=== PATIENT | female | born 1975 | race Caucasian/White ===

== ENCOUNTER → 2020-02-08 08:44 | Outpatient (CLI) | payer OTHER, SELFPAY ==
[2020-02-08 09:56] LABS: Hematocrit 41.1 % (36-46); Hemoglobin 13.7 g/dL (12.0-16.0); Mean Corpuscular HGB Conc 33.4 % (30-36); Mean Corpuscular Hemoglobin 30.7 PG (26-34); Mean Corpuscular Volume 91.9 fL (80-100); Platelet Count 280 X10^3/uL (150-400); Red Blood Cell Count 4.47 X10^6/uL (4.0-5.2); Red Cell Distribution Width 13.4 % (11.6-14.8)
[2020-02-08 10:32] LABS: Alanine Aminotransferase 13 IU/L (<35); Albumin 4.2 g/dL (3.5-5.0); Albumin Globulin Ratio 1.3 (1.0-2.8); Alkaline Phosphatase 59 U/L (38-126); Aspartate Aminotransferase 21 IU/L (14-36); BUN Creatinine Ratio 31.1 (6-22); Bilirubin Total 0.5 mg/dL (0.2-1.3); Blood Urea Nitrogen 19 mg/dL (7-17); Calcium 9.1 mg/dL (8.4-10.2); Carbon Dioxide 27 mmol/L (22-32); Chloride 105 mmol/L (98-107); Cholesterol 205 mg/dL (140-199); Estimated Glomerular Filt Rate > 60.0 mL/min (>60); Globulin 3.3 g/dL (1.7-4.1); Glucose 93 mg/dL (70-100); HDL Cholesterol 77 mg/dL (40-60); HEMOLYSIS < 15 (0-50); LDL Cholesterol Calculated 111 mg/dL (<100); Potassium 4.3 mmol/L (3.4-5.1); Sodium 138 mmol/L (137-145); Total Protein 7.5 g/dL (6.3-8.2); Triglycerides 87 mg/dL (35-150)
[2020-02-08 10:59] LABS: TSH w/ Reflex to FT4 1.56 uIU/mL (0.47-4.68)
== END ==
PROVIDERS: Family Provider Physician Assistant; PCP Registered Nurse Diabetes Educator; Referring Provider Registered Nurse Diabetes Educator; Visit Provider Registered Nurse Diabetes Educator
DX: Z00.00 Encounter for general adult medical examination without abnormal findings (principal)
CPT/HCPCS: 36415; 80053; 80061; 84443; 85027

== ENCOUNTER → 2020-02-18 11:04 | Outpatient (CLI) | payer OTHER, SELFPAY ==
--- NOTE | 2020-02-18 11:07 | DI.US.S_ITS ---
PROCEDURE: US PELVIC COMPLETE INDICATIONS: Apparent enlarged irregularly shaped uterus on exam TECHNIQUE: Real-time scanning was performed of the pelvic organs, with image documentation. COMPARISON: [facility], CR, [id number] W PEL IF PERFORMED, 01/03/2017, 8:52. FINDINGS: Transabdominal scanning: Limited scanning through the kidneys shows no hydronephrosis. Right kidney measures 12.5 cm. Left kidney measures 11.6 cm. No pathologic free abdominal or pelvic fluid. Endovaginal scanning: Uterus: Uterus is normal in size at 12.9 x 10.3 x 6.5 cm. Uterus is imaged at the level of the umbilicus. Large left anterior intramural fibroid measuring 7 x 6 x 5.7 cm. Multiple fibroids. The endometrium measures approximately 4 mm in combined thickness. Ovaries: Blood flow seen in both ovaries. Less than 12 ovarian follicles bilaterally. Right ovary measures 2.4 x 2.1 x 1.4 cm. Left ovary measures 4.9 x 2.8 x 2.7 cm. Left ovary complex cyst measuring at 2.9 x 2.5 x 2.5 cm. This has a lacy or septated appearance. No internal vascularity is seen. IMPRESSION: 1. Large bulky fibroid uterus. Larger fibroid measuring 7 cm. 2. Endometrium measures approximately 4 mm. 3. Complex left ovarian cyst measuring 2.9 cm. -Recommend follow-up ultrasound in 6-12 weeks. Transvaginal evaluation would likely be helpful for further characterization at that time. Dictated by: Justyn Todd M.D. on 02/18/2020 at 13:52 Approved by: Justyn Todd M.D. on 02/18/2020 at 14:13
== END ==
PROVIDERS: PCP Registered Nurse Diabetes Educator; Referring Provider Registered Nurse Diabetes Educator; Visit Provider Registered Nurse Diabetes Educator
DX: D25.1 Intramural leiomyoma of uterus (principal); N83.292 Other ovarian cyst, left side; N85.2 Hypertrophy of uterus
CPT/HCPCS: 76856

== ENCOUNTER → 2020-03-19 11:00 | Outpatient (CLI) | payer OTHER, SELFPAY ==
--- NOTE | 2020-03-19 | DI.MG.S_ITS ---
BILATERAL DIGITAL SCREENING MAMMOGRAM 3D/2D WITH CAD: 03/19/2020 CLINICAL: Routine screening. Comparison is made to exam dated: 12/21/2016 [facility]. There are scattered fibroglandular elements in both breasts. Current study was also evaluated with a Computer Aided Detection (CAD) system. No significant masses, calcifications, or other findings are seen in either breast. There has been no significant interval change. IMPRESSION: NEGATIVE There is no mammographic evidence of malignancy. A 1 year screening mammogram is recommended. This exam was interpreted at Station ID: [id number]. NOTE: For mammograms, a report in lay terms will be sent to the patient. Approximately 15% of breast malignancies will not be visualized mammographically. In the management of a palpable breast mass, a negative mammogram must not discourage biopsy of a clinically suspicious lesion. Electronically Signed By: Jermaine noble/chato:03/19/2020 12:29:07 letter sent: Normal Exam ACR BI-RADS Category 1: Negative [id number]
== END ==
PROVIDERS: PCP Registered Nurse Diabetes Educator; Referring Provider Registered Nurse Diabetes Educator; Visit Provider Registered Nurse Diabetes Educator
DX: Z12.31 Encounter for screening mammogram for malignant neoplasm of breast (principal)
CPT/HCPCS: 77063; 77067

== ENCOUNTER → 2020-03-28 10:30 | Outpatient (CLI) | payer OTHER, SELFPAY ==
--- NOTE | 2020-03-28 10:32 | DI.US.S_ITS ---
PROCEDURE: US PELVIC COMPLETE INDICATIONS: 6 WEEK FOLLOW-UP TECHNIQUE: Real-time scanning was performed of the pelvic organs, with image documentation. Additional endovaginal scanning was necessary due to incomplete visualization of the adnexal and endometrial structures by transabdominal scanning. COMPARISON: [facility], , US PELVIC COMPLETE, 02/18/2020, 11:43. FINDINGS: Transabdominal scanning: Limited scanning through the kidneys shows no hydronephrosis. No pathologic free abdominal or pelvic fluid. The endometrial lining could not be effectively visualized due to overlying uterine fibroids, producing shadowing and distortion of the more posterior uterus. There is a right-sided anterior intramural 6.9 x 4.2 x 5.8 cm fibroid also left-sided anterior intramural 7.2 x 5.7 x 6.1 cm fibroid. Endovaginal scanning: Uterus: Uterus is normal in size at 10.1 x 11.0 x 11.3 cm. The endometrium Ovaries: The left ovary, containing a complex structure previously, now appears normal with resolution of a complex presumed hemorrhagic ovarian cyst on the left. The right ovary could not be seen due to bowel gas. IMPRESSION: At least 2 large uterine fibroids are present anteriorly which obscure visualization of the endometrial lining in the more posterior uterus. Resolution of a complex left ovarian structure that, given foreign exchange clerk time, appears to have represented a hemorrhagic left ovarian cyst that has involuted. No follow-up recommended. Dictated by: Sunil Frias M.D. on 03/28/2020 at 11:56 Approved by: Sunil Frias M.D. on 03/28/2020 at 12:00
== END ==
PROVIDERS: PCP Registered Nurse Diabetes Educator; Referring Provider Registered Nurse Diabetes Educator; Visit Provider Registered Nurse Diabetes Educator
DX: N83.292 Other ovarian cyst, left side (principal); D25.1 Intramural leiomyoma of uterus
CPT/HCPCS: 76830; 76856

== ENCOUNTER → 2020-06-27 09:43 | Outpatient (CLI) | payer OTHER, SELFPAY ==
[2020-06-27] MEDS: COVID-19 VACC #1, MRNA(MOD) 100 MCG/0.5 ML VIAL IM (09:51)
== END ==
PROVIDERS: PCP Registered Nurse Diabetes Educator; Visit Provider Internal Medicine
DX: Z23 Encounter for immunization (principal)
CPT/HCPCS: 0011A; 91301

== ENCOUNTER → 2020-07-25 09:38 | Outpatient (CLI) | payer OTHER, SELFPAY ==
[2020-07-25] MEDS: COVID-19 VACC #2, MRNA(MOD) 100 MCG/0.5 ML VIAL IM (09:39)
== END ==
PROVIDERS: PCP Registered Nurse Diabetes Educator; Visit Provider Internal Medicine
DX: Z23 Encounter for immunization (principal)
CPT/HCPCS: 0012A; 91301

== ENCOUNTER 2021-04-17 10:24 | Emergency (ER) | payer OTHER, SELFPAY ==
[2021-04-17] VITALS (13 sets, daily range): BP systolic 113–167; BP diastolic 67–101; PULSE 74–110; RESP 15–24; TEMP 36.1; O2SAT 95–98; BMI 29.2
[2021-04-17 10:47] LABS: Add Manual Diff / Slide Review NO; Basophils Absolute Auto 100 /uL (0-100); Basophils Percent Auto 0.7 % (0-2); Eosinophils Absolute Auto 0 /uL (0-450); Hematocrit 44.4 % (36-46); Lymphocytes Absolute Auto 2600 /uL (1100-4500); Lymphocytes Percent Auto 18.5 % (25-40); Mean Corpuscular HGB Conc 33.9 % (30-36); Mean Corpuscular Hemoglobin 29.8 PG (26-34); Mean Corpuscular Volume 87.9 fL (80-100); Monocytes Absolute Auto 600 /uL (0-900); Monocytes Percent Auto 4.5 % (3-14); Neutrophils Absolute Auto 10900 /uL (1500-7000); Neutrophils Percent Auto 76.3 % (50-75); Platelet Count 326 X10^3/uL (150-400); Red Blood Cell Count 5.05 X10^6/uL (4.0-5.2); Red Cell Distribution Width 14.1 % (11.6-14.8); White Blood Cell Count 14.2 X10^3/uL (4.5-11.0)
--- NOTE | 2021-04-17 10:55 | PC.NURSE ---
Poison control called talked to Sivakumar Labs ordered are appropriate,wants serum osmalarity added on. If ethanol is negative and labs look good this is low risk situation.
[2021-04-17 11:00] LABS: COVID19 -Nasal RAPID Negative (Negative)
[2021-04-17] MEDS: ONDANSETRON 4 MG/2 ML INJ IV (11:00)
--- NOTE | 2021-04-17 11:00 | ED_ITS ---
HPI - Alcohol General Chief Complaint: Toxicology Problem Stated Complaint: Used alcohol for 7 straight days Time Seen by Provider: 04/17/21 10:44 Source: patient Mode of arrival: Ambulatory Limitations: no limitations History of Present Illness HPI narrative: The patient has a history of alcohol abuse. She has been in therapy in the past, there into rehab. She has been binge drinking for 7 days. She has been consuming large amounts of rum and vodka, about 1/2 bottle daily. She around of alcohol home. She consumes a small amount of isopropyl alcohol last night, about 5:00 a.m. this morning she consumed a quarter bottle of the isopropyl alcohol. She has headache. She has no visual changes. She has no chest pain, palpitations, or dyspnea. She has nausea, she has not vomited this morning. She did vomit yesterday. She has no GI plan. She has no history of seizures. She has no shaking or tremor at this time. She is crying, she is quite upset. She has no history of GI bleeding, no history of liver disease. She takes Lexapro for depression. 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 She has a pleasant, very devoted with her. Related Data Previous Rx's Medication Instructions Recorded hydroxyzine HCl 25 mg tablet 25 mg PO QID PRN #20 tab 09/16/20 escitalopram oxalate 10 mg tablet 15 mg PO DAILY #135 tab 11/19/20 (Lexapro) Allergies Allergy/AdvReac Type Severity Reaction Status Date / Time No Known Drug Allergies Allergy Verified 04/17/21 10:39 Review of Systems Constitutional Constitutional: Denies body ache(s), Denies chills, Denies fatigue, Denies fever(s) and Denies night sweats Eyes Eyes: Denies change in vision ENT Ears, Nose, Mouth, and Throat: Denies vertigo, Denies dizziness, Denies sinus pressure and Denies sore throat Cardiovascular Cardiovascular: Denies chest pain, Denies syncope, Denies rapid heart rate and Denies dyspnea Respiratory Respiratory: Denies chest congestion, Denies cough and Denies dyspnea Gastrointestinal Gastrointestinal: Denies abdominal pain, Denies melena, Denies constipation, Reports nausea and Reports vomiting (History, not today) Genitourinary Genitourinary: Denies dysuria Musculoskeletal Musculoskeletal: Denies arthralgias and Denies back pain Integumentary/Breasts Skin/Breast: Denies rash Neurologic Neurologic: Denies confusion, Denies vertigo, Denies dizziness and Denies syncope Psychiatric Psychiatric: Denies confusion and Reports depression Comments: No suicidal ideation. Endocrine Endocrine: Denies fatigue and Denies flushing Hematologic/Lymphatic On Anticoagulants: No Patient History Medical History (Updated 04/17/21 @ 14:53 by Patel Deluna MD) Alcohol abuse Anemia (Unknown) Anxiety (~2014) Chicken pox (~1979) Depression (~2014) Elevated LDL cholesterol level Fibroids (~2002) Pain of right hip joint pain (12/2016) Rosacea Vitamin D deficiency (12/2016) Family History Father Cancer Mother Hypertension Brother Mental health problem Social History Smoking Status: Never smoker Tobacco: How many years used: 5 additional social history: 01/24/20: Patient lives here in [place] with her , 17-year-old daughter, 31-year-old stepson, and her 's brother who is paralyzed and for whom she and her are caretakers. 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 which are also sold through their company. 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 Smoking Status: Never smoker alcohol intake frequency: 3 or more drinks per day Alcohol type: hard liquor Substance Use Type: does not use Exam Initial Vital Signs Initial Vital Signs: Vital Signs Temperature 97.0 F L 04/17/21 10:35 Pulse Rate 99 H 04/17/21 10:35 Respiratory Rate 15 04/17/21 10:35 Blood Pressure 167/101 H 04/17/21 10:35 Pulse Oximetry 97 04/17/21 10:35 Const General: cooperative, in distress, anxious and other (Crying) HENMT Head: normocephalic and atraumatic Face and sinus: normal facial exam Mouth: oral mucosae normal Eyes Conjunctivae: conjunctivae normal Sclera: sclerae normal Pupils: PERRL EOM: EOM intact bilaterally Neck Neck: normal visual inspection, No lymphadenopathy and No JVD Resp Effort & Inspection: normal respiratory effort Auscultation: clear to auscultation bilaterally Cardio Rate: regular rate Rhythm: regular rhythm Heart Sounds: S1 normal, S2 normal and no murmurs GI Inspection: normal to inspection and non-distended Palpation: soft and No tender Auscultation: normal bowel sounds Back/Spine/Pelvis Back: normal to inspection Skin General: no rashes or lesions noted Neuro General: patient alert, patient awake, patient oriented x3, no focal motor deficits and other (No tremor) Extrem General: no pedal edema and no calf tenderness Psych Appearance: disheveled Mood: anxious mood Attitude: cooperative Course Course Course Narrative: The patient has been monitored in the ER for 4 hours. Labs and EKG monitoring has been normal. She is clinically stable. She has been visited by Social Work, who confirms she is not suicidal. She has a minimal making a plan to protect her health. [place] Poison Control was consulted. They have no additional concerns. Orders Ordered: ED Orders 04/17/21 10:36 Acetaminophen Stat COVID19 -Nasal swab/Pre-Proc Stat Complete Blood Count AUTO DIFF Stat Comprehensive Metabolic Panel Stat Ethanol (ETOH) Stat Free T4, Direct Thyroxine Stat Salicylate Stat Thyroid Stimulating Hormone Stat 04/17/21 10:40 Urine Culture Stat Urine Drug Screen, Rapid Stat Urine Microscopic Stat 04/17/21 10:45 Ketones (Beta-Hydroxybutyrate) Stat 04/17/21 10:48 EKG-12 Lead Stat 04/17/21 11:05 Osmolality, Serum Stat 04/17/21 11:14 ABG [Arterial Blood Gas] Stat 04/17/21 12:14 Consult to [facility] - Trouble Locater Stat Sodium Chloride (Normal Saline 0.9%) 1,000 mls @ 250 mls/hr IV CONT AUBREY Last Admin: 04/17/21 13:08 Dose: 250 mls/hr Documented by: ATAYLOR Discontinued Medications Sodium Chloride (Normal Saline 0.9%) 1,000 mls @ 1,000 mls/hr IV BOLUS ONE Stop: 04/17/21 13:24 Last Infusion: 04/17/21 12:10 Dose: 999 mls/hr Documented by: Admin: 04/17/21 11:05 Dose: 1,000 mls/hr Documented by: ADAM Ondansetron HCl (Ondansetron 4 Mg/2 Ml Inj) 4 mg IV NOW ONE Stop: 04/17/21 10:56 Last Admin: 04/17/21 11:00 Dose: 4 mg Documented by: ADAM Sodium Chloride (Sodium Chloride 0.9% 100 Ml) 250 ml IV NOW ONE Stop: 04/17/21 12:26 Last Admin: 04/17/21 12:30 Dose: Not Given Documented by: ADAM Vital Signs Vital signs: Vital Signs - 8 hr 04/17/21 10:35 04/17/21 10:44 04/17/21 10:45 Temperature 97.0 F L Pulse Rate 99 H 92 H 91 H Respiratory Rate 15 Blood Pressure 167/101 H 144/79 H Pulse Oximetry 97 97 98 04/17/21 11:00 04/17/21 11:01 04/17/21 11:31 Temperature Pulse Rate 86 89 74 Respiratory Rate 24 Blood Pressure 117/79 141/80 H Pulse Oximetry 98 98 97 04/17/21 12:00 04/17/21 12:30 04/17/21 13:00 Temperature Pulse Rate 88 98 H 110 H Respiratory Rate 18 18 23 Blood Pressure 130/79 113/67 Pulse Oximetry 98 96 98 04/17/21 13:04 04/17/21 13:30 04/17/21 14:00 Temperature Pulse Rate 101 H 107 H 91 H Respiratory Rate 16 21 Blood Pressure 125/71 131/70 Pulse Oximetry 98 97 MDM - Alcohol Lab Data Result diagrams: 04/17/21 10:36 04/17/21 10:36 Labs: Lab Results 04/17/21 04/17/21 04/17/21 Range/Units 10:36 10:36 10:36 WBC 14.2 H (4.5-11.0) X10^3/uL RBC 5.05 (4.0-5.2) X10^6/uL Hgb 15.0 (12.0-16.0) g/dL Hct 44.4 (36-46) % MCV 87.9 (80-100) fL MCH 29.8 (26-34) PG MCHC 33.9 (30-36) % RDW 14.1 (11.6-14.8) % Plt Count 326 (150-400) X10^3/uL Neut % (Auto) 76.3 H (50-75) % Lymph % (Auto) 18.5 L (25-40) % [place] % (Auto) 4.5 (3-14) % Eos % (Auto) 0.0 L (2-4) % Baso % (Auto) 0.7 (0-2) % Neut # (Auto) 02582 H (9588-4031) /uL Lymph # (Auto) 2600 (1155-3495) /uL [place] # (Auto) 600 (0-900) /uL Eos # (Auto) 0 (0-450) /uL Baso # (Auto) 100 (0-100) /uL ABG pH (7.35-7.45) ABG pCO2 (35-45) mmHg ABG pO2 (80-100) mmHg ABG HCO3 (22-26) mmol/L ABG Total CO2 (21-31) mmol/L ABG O2 Saturation (95-100) % ABG Base Excess (-2-2) mmol/L FiO2 Sodium 142 (137-145) mmol/L Potassium 3.9 (3.4-5.1) mmol/L Chloride 103 (98-107) mmol/L Carbon Dioxide 22 (22-32) mmol/L BUN 9 (7-17) mg/dL Creatinine 0.59 (0.52-1.04) mg/dL Estimated GFR > 60.0 (>60) mL/min BUN/Creatinine Ratio 15.3 (6-22) Glucose 136 H (70-100) mg/dL Calcium 8.9 (8.4-10.2) mg/dL Total Bilirubin 0.8 (0.2-1.3) mg/dL AST 37 H (14-36) IU/L ALT 20 (<35) IU/L Alkaline Phosphatase 80 (38-126) U/L Total Protein 9.6 H (6.3-8.2) g/dL Albumin 5.0 (3.5-5.0) g/dL Globulin 4.6 H (1.7-4.1) g/dL Albumin/Globulin Ratio 1.1 (1.0-2.8) TSH 1.44 (0.47-4.68) uIU/mL Free T4 0.85 (0.78-2.19) ng/dL Urine RBC (0-5/HPF) Urine WBC (0-5/HPF) Ur Squamous Epith Cells (0-5/HPF) Urine Bacteria (None) Ur Culture Indicated? Salicylates < 1.0 (<20) mg/dL U Opiates 300ng/mL cut (Negative) Ur Oxycodone Screen (Negative) Urine Methadone Screen (Negative) Acetaminophen < 10 L (10-30) ug/mL Ur Barbiturates Screen (Negative) U Tricyclic Antidepress (Negative) Ur Phencyclidine Scrn (Negative) Ur Amphetamines Screen (Negative) U Methamphetamines Scrn (Negative) Ur MDMA Scrn (Ecstasy) (Negative) U Benzodiazepines Scrn (Negative) Urine Cocaine Screen (Negative) U Marijuana (THC) Screen (Negative) Ethyl Alcohol 50 H ( - 10) mg/dL Ketones (<0.27) mmol/L SARS-CoV-2 (PCR) (Negative) 04/17/21 04/17/21 04/17/21 Range/Units 10:36 10:40 10:40 WBC (4.5-11.0) X10^3/uL RBC (4.0-5.2) X10^6/uL Hgb (12.0-16.0) g/dL Hct (36-46) % MCV (80-100) fL MCH (26-34) PG MCHC (30-36) % RDW (11.6-14.8) % Plt Count (150-400) X10^3/uL Neut % (Auto) (50-75) % Lymph % (Auto) (25-40) % [place] % (Auto) (3-14) % Eos % (Auto) (2-4) % Baso % (Auto) (0-2) % Neut # (Auto) (8394-1072) /uL Lymph # (Auto) (6238-3993) /uL [place] # (Auto) (0-900) /uL Eos # (Auto) (0-450) /uL Baso # (Auto) (0-100) /uL ABG pH (7.35-7.45) ABG pCO2 (35-45) mmHg ABG pO2 (80-100) mmHg ABG HCO3 (22-26) mmol/L ABG Total CO2 (21-31) mmol/L ABG O2 Saturation (95-100) % ABG Base Excess (-2-2) mmol/L FiO2 Sodium (137-145) mmol/L Potassium (3.4-5.1) mmol/L Chloride (98-107) mmol/L Carbon Dioxide (22-32) mmol/L BUN (7-17) mg/dL Creatinine (0.52-1.04) mg/dL Estimated GFR (>60) mL/min BUN/Creatinine Ratio (6-22) Glucose (70-100) mg/dL Calcium (8.4-10.2) mg/dL Total Bilirubin (0.2-1.3) mg/dL AST (14-36) IU/L ALT (<35) IU/L Alkaline Phosphatase (38-126) U/L Total Protein (6.3-8.2) g/dL Albumin (3.5-5.0) g/dL Globulin (1.7-4.1) g/dL Albumin/Globulin Ratio (1.0-2.8) TSH (0.47-4.68) uIU/mL Free T4 (0.78-2.19) ng/dL Urine RBC 0-1/hpf (0-5/HPF) Urine WBC 0-1/hpf (0-5/HPF) Ur Squamous Epith Cells 1-5 /hpf (0-5/HPF) Urine Bacteria Occasional (0-1) (None) Ur Culture Indicated? Cult not indicated Salicylates (<20) mg/dL U Opiates 300ng/mL cut Negative (Negative) Ur Oxycodone Screen Negative (Negative) Urine Methadone Screen Negative (Negative) Acetaminophen (10-30) ug/mL Ur Barbiturates Screen Negative (Negative) U Tricyclic Antidepress Negative (Negative) Ur Phencyclidine Scrn Negative (Negative) Ur Amphetamines Screen Negative (Negative) U Methamphetamines Scrn Negative (Negative) Ur MDMA Scrn (Ecstasy) Negative (Negative) U Benzodiazepines Scrn Negative (Negative) Urine Cocaine Screen Negative (Negative) U Marijuana (THC) Screen Negative (Negative) Ethyl Alcohol ( - 10) mg/dL Ketones (<0.27) mmol/L SARS-CoV-2 (PCR) Negative (Negative) 04/17/21 04/17/21 Range/Units 10:45 11:14 WBC (4.5-11.0) X10^3/uL RBC (4.0-5.2) X10^6/uL Hgb (12.0-16.0) g/dL Hct (36-46) % MCV (80-100) fL MCH (26-34) PG MCHC (30-36) % RDW (11.6-14.8) % Plt Count (150-400) X10^3/uL Neut % (Auto) (50-75) % Lymph % (Auto) (25-40) % [place] % (Auto) (3-14) % Eos % (Auto) (2-4) % Baso % (Auto) (0-2) % Neut # (Auto) (2447-5544) /uL Lymph # (Auto) (4956-0876) /uL [place] # (Auto) (0-900) /uL Eos # (Auto) (0-450) /uL Baso # (Auto) (0-100) /uL ABG pH 7.42 (7.35-7.45) ABG pCO2 35.7 (35-45) mmHg ABG pO2 76 L (80-100) mmHg ABG HCO3 23 (22-26) mmol/L ABG Total CO2 24 (21-31) mmol/L ABG O2 Saturation 95 (95-100) % ABG Base Excess -1.0 (-2-2) mmol/L FiO2 21 Sodium (137-145) mmol/L Potassium (3.4-5.1) mmol/L Chloride (98-107) mmol/L Carbon Dioxide (22-32) mmol/L BUN (7-17) mg/dL Creatinine (0.52-1.04) mg/dL Estimated GFR (>60) mL/min BUN/Creatinine Ratio (6-22) Glucose (70-100) mg/dL Calcium (8.4-10.2) mg/dL Total Bilirubin (0.2-1.3) mg/dL AST (14-36) IU/L ALT (<35) IU/L Alkaline Phosphatase (38-126) U/L Total Protein (6.3-8.2) g/dL Albumin (3.5-5.0) g/dL Globulin (1.7-4.1) g/dL Albumin/Globulin Ratio (1.0-2.8) TSH (0.47-4.68) uIU/mL Free T4 (0.78-2.19) ng/dL Urine RBC (0-5/HPF) Urine WBC (0-5/HPF) Ur Squamous Epith Cells (0-5/HPF) Urine Bacteria (None) Ur Culture Indicated? Salicylates (<20) mg/dL U Opiates 300ng/mL cut (Negative) Ur Oxycodone Screen (Negative) Urine Methadone Screen (Negative) Acetaminophen (10-30) ug/mL Ur Barbiturates Screen (Negative) U Tricyclic Antidepress (Negative) Ur Phencyclidine Scrn (Negative) Ur Amphetamines Screen (Negative) U Methamphetamines Scrn (Negative) Ur MDMA Scrn (Ecstasy) (Negative) U Benzodiazepines Scrn (Negative) Urine Cocaine Screen (Negative) U Marijuana (THC) Screen (Negative) Ethyl Alcohol ( - 10) mg/dL Ketones 0.23 (<0.27) mmol/L SARS-CoV-2 (PCR) (Negative) Point of Care Testing Test Results Negative Urine Dip Bedside Urine Glucose Negative Bedside Urine Bilirubin - Negative Bedside Urine Ketone - Negative Urine Specific [place] 1.010 Bedside Urine Occult Blood +/- Bedside Urine pH 6 Bedside Urine Protein - Negative Bedside Urine Urobilinogen - Negative Bedside Urine Nitrite - Negative Bedside Urine Leukocytes - Negative Esterase ECG Data Attestation: I personally reviewed and interpreted this ECG as follows: (Normal sinus rhythm rate 70 beats per minute. QT 388 QTC 442. No ectopy. No acute ST T wave changes. Poor R-wave progression to the anterior leads. ) Discharge Plan Departure Patient Disposition: Home Clinical Impression: Accidental poisoning by isopropyl alcohol Instructions: DI for Alcohol Use Disorder Activity Restrictions/Additional Instructions: Continue your current medications. Avoid all alcohol consumption. Talk to your doctor about ongoing treatment for depression, and I would suggest counseling. Return here as necessary. Prescriptions: No Action escitalopram oxalate [Lexapro] 10 mg tablet 15 mg PO DAILY Qty: 135 3RF hydroxyzine HCl 25 mg tablet 25 mg PO QID PRN (Reason: anxiety) Qty: 20 3RF Referrals: Michoacano Jiménez ARNP [Primary Care Provider] - Stand Alone Forms: Naloxone Standing Order LYNN
[2021-04-17 11:05] LABS: Acetaminophen < 10 ug/mL (10-30); Alanine Aminotransferase 20 IU/L (<35); Albumin Globulin Ratio 1.1 (1.0-2.8); Alkaline Phosphatase 80 U/L (38-126); Aspartate Aminotransferase 37 IU/L (14-36); BUN Creatinine Ratio 15.3 (6-22); Bilirubin Total 0.8 mg/dL (0.2-1.3); Blood Urea Nitrogen 9 mg/dL (7-17); Calcium 8.9 mg/dL (8.4-10.2); Carbon Dioxide 22 mmol/L (22-32); Chloride 103 mmol/L (98-107); Estimated Glomerular Filt Rate > 60.0 mL/min (>60); Ethanol (ETOH) 50 mg/dL; Globulin 4.6 g/dL (1.7-4.1); Glucose 136 mg/dL (70-100); HEMOLYSIS < 15 (0-50); Potassium 3.9 mmol/L (3.4-5.1); Salicylate < 1.0 mg/dL (<20); Sodium 142 mmol/L (137-145); Total Protein 9.6 g/dL (6.3-8.2)
[2021-04-17] MEDS: SODIUM CHLORIDE 0.9% 1,000 ML 1000 ML IV (11:05)
[2021-04-17 11:22] LABS: Ketones (Beta-Hydroxybutyrate) 0.23 mmol/L (<0.27)
[2021-04-17 11:28] LABS: HCO3 ABG 23 mmol/L (22-26); PCO2 ABG 35.7 mmHg (35-45); PO2 ABG 76 mmHg (80-100); TCO2 ABG 24 mmol/L (21-31); pH ABG 7.42 (7.35-7.45)
[2021-04-17 11:29] LABS: Fractionated Inspired Oxygen 21; Oxygen Saturation ABG 95 % (95-100)
[2021-04-17 12:35] LABS: Free T4, Direct Thyroxine 0.85 ng/dL (0.78-2.19)
[2021-04-17 12:49] LABS: Thyroid Stimulating Hormone 1.44 uIU/mL (0.47-4.68)
[2021-04-17 12:54] LABS: UR Morphine/Opiate cutoff 300 Negative (Negative); Ur Creatinine Normal (Normal); Ur Specific Gravity Normal (Normal); Urine Amphetamines Negative (Negative); Urine Barbiturates Negative (Negative); Urine Benzodiazepines Negative (Negative); Urine Cocaine Negative (Negative); Urine MDMA Negative (Negative); Urine Methadone Negative (Negative); Urine Methamphetamines Negative (Negative); Urine Oxycodone Negative (Negative); Urine Phencyclidine Negative (Negative); Urine Tetrahydrocannabinol Negative (Negative); Urine Tricyclic Antidepressant Negative (Negative); Urine pH Normal (Normal)
[2021-04-17 12:58] LABS: Bacteria Urine Occasional (0-1); Culture Indicated Urine Cult Not Indicated; RBC Urine 0-1/HPF (0-5/HPF); Squamous Epithelial Cell Urine 1-5 /HPF (0-5/HPF); WBC Urine 0-1/HPF (0-5/HPF)
[2021-04-17] MEDS: SODIUM CHLORIDE 0.9% 1,000 ML 250 ML IV (13:08)
--- NOTE | 2021-04-17 13:47 | CM.SWNOTE ---
MANAGER ACQUISITION Assessment MANAGER ACQUISITION - Environmental Engineer Assessment MANAGER ACQUISITION/Environmental Engineer Assessment Time Spent with Patient Start date 04/17/21 Visit Start Time 12:20 End date 04/17/21 Visit End Time 12:55 Total time Care Management spent on 35 min patient visit-in minutes Substance Abuse Screening Include Onset, Duration, Intensity Presenting Problem Patient presents to the ED with after binging on ETOH the last 7 days. Patient drank rubbing alcohol this AM when she ran out of ETOH at home. Precipitating Event(s) Patient and endorse that 's quadriplegic brother resides at their home and requires round the clock care. It is reported he moved in about 5 years ago and that is when the binge drinking started. 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 Patient states she struggles with anxiety and depression. Patient Strengths Patient recognizes her drinking is a problem and is thinking about addressing it. Patient has good supports. Current Behavioral Health Provider(s) Patient previously saw [facility], Provider, Ph. # VERNA Valenzuela in the [facility] program (Ph. # [phone]). Per EMR, patient's last session was in December 2020 Family Hx of Behavioral Abuse None reported Rehab Facilities? ((Date(s), Location(s) No hx. ) History of Withdrawal? Seizures? Patient endorses stomach pains and nausea Longest Period of Sobriety 1-2 months Psychosocial information & Support Patient is 45 y/o female who Systems resides with in [place]. Patient endorses is support and patient's daughter is in college in [place] and daughter is a support as well. 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 Patient is tearful at times when discussing ETOH use. Thought Content - Specify/Describe None reported Obsessions, Delusions, Hallucinations Thought Processes (Mjhqzzq-Zaahklex-Cqra coherent Yzyvcwzb-Gbmnnorp-Hegohbqwqb- Xsytmnxbpmzcri-Hhhpdgf-Nznooiugranb- Thought Blocking) Speech (Cczdhn-Gusb-Dypudos-Rapid-Soft- Normal Loud-Pressured) Motor (Bfyxqe-Xshphgytc-Mzwb-Other) normal, not formally assessed Insight (Lthb-Ypjy-Buxd/Limited) fair Judgement (Opqg-Fvbe-Znjs/Limited) fair Impulse Control (Adequate-Impaired) adequate during assessment Memory (Ikqkaitmu-Ehuzzx-Ggkdeg, intact, not formally assessed Impaired-Intact) Concentration (Intact-Impaired) intact Attention (Intact-Impaired) intact Behavior (Appropriate-Inappropriate) appropriate Risk Assessment Suicidal Ideation (Plan) No Homicidal Ideation (Plan) No Comment Patient denies SI and denies any plans for SI but reports that she has thoughts of going to sleep and not waking up. Patient endorses she drinks to check out. Intervention Intervention MANAGER ACQUISITION enters room to meet with patient. Present in room is patient's . Patient provides consent for to be present. Patient endorses ongoing life stressers over the past 5-6 years. It is reported that patient has ETOH binging behaviors throughout this time period on and off. Patient and endorse that patient will go about a month at a time without drinking and without thinking about drinking. It is reported that when patient drinks she will drink every day for several days. It is reported that patient has been binging on hard alcohol the last 7 days and this morning patient drank rubbing alcohol when patient ran out of ETOH. Patient and endorse that wanted to bring patient to ED this morning and patient agreed to come later in the morning today. Patient's BAL is 50, above the legal limit. MANAGER ACQUISITION discusses IOP, inpatient, detox, and AA. Patient endorses interest in receiving information about these services. MANAGER ACQUISITION recommends f/u with PCP and to seek a KALIE assessment from [facility] service facility when patient is ready . MANAGER ACQUISITION calls [facility] provider line and schedules PCP f/u appt for patient with Michoacano Jiménez for Tuesday04/28/21 at 11:30 AM. MANAGER ACQUISITION provides patient with AA, KALIE assessment and services resources and detox resources. It is the opinion of this MANAGER ACQUISITION that patient is safe to d/c to home with when medically clear. Patient to f/ u with PCP and seek KALIE services when ready to do so. MANAGER ACQUISITION reviews the above with ED provider Dr. Deluna who indicates agreement and understanding. Plan RA Plan Patient to d/c to home with when medically clear. Patient to f/u with PCP on , and patient to f/u with KALIE services. VERNA Saldana
--- NOTE | 2021-04-17 14:45 | PC.NURSE ---
Poison Control called and case/vitals/labs discussed. Poison Control recommends serum osmolality lab test, informed them per in house lab that is a send-out. Poison Control recommended repeat ABG/VBG, Dr. Deluna notified, no new orders.
[2021-04-20 18:37] LABS: Osmolality, Serum 314 mOsmol/kg (275-295)
--- NOTE | 2021-04-23 11:23 | PC.NURSE ---
Late Entry: Sodium Chloride 0.9% discontinued at 1450 on 04/17/21.
== END 2021-04-17 15:01 | disposition home or self-care (01) ==
PROVIDERS: Emergency Provider Emergency Medicine; PCP Registered Nurse Diabetes Educator
DX: T51.2X1A Toxic effect of 2-Propanol, accidental (unintentional), initial encounter (principal); R51.9 Headache, unspecified; R11.2 Nausea with vomiting, unspecified; Z20.822 Contact with and (suspected) exposure to COVID-19
CPT/HCPCS: 36600; 80053; 80305; 80320; 80329; 81003; 81015; 81025; 82009; 82805; 83930; 84439; 84443; 85025; 87086; 87635; 93005; 93010; 96361; 96374; 99284; C9803; G0480; J2405

== ENCOUNTER → 2021-11-18 12:07 | Outpatient (CLI) | payer SELFPAY ==
--- NOTE | 2021-11-18 12:07 | DI.US.S_ITS ---
PROCEDURE: US PERIPH VENOUS LOW EXTREM RT INDICATIONS: lower leg swelling TECHNIQUE: Real-time imaging, as well as color and pulse Doppler interrogation, were performed of the lower extremity deep veins from the inguinal ligament to the popliteal fossa. COMPARISON: None. FINDINGS: The common femoral, femoral and popliteal veins are normally compressible, and free of intraluminal thrombus. Color and pulse Doppler demonstrate normal phasic intraluminal flow. There is normal augmentation response to distal compression maneuver. There is a 4.1 x 3.8 x 1.3 cm Goodman's cyst seen. Additional cystic focus can be seen within the popliteal fossa/upper calf measuring 5.4 x 4 x 2 x 1.2 cm IMPRESSION: Negative for deep venous thrombosis. Two popliteal fossa/upper calf fluid collections are seen, 1 of which represents a Goodman's cyst. Dictated by: Vincenzo Jin M.D. on 11/18/2021 at 11:54 Approved by: Vincenzo Jin M.D. on 11/18/2021 at 11:55
== END ==
PROVIDERS: PCP Registered Nurse Diabetes Educator; Referring Provider Nurse Practitioner Family; Visit Provider Nurse Practitioner Family
DX: M79.89 Other specified soft tissue disorders (principal); M71.21 Synovial cyst of popliteal space [Baker], right knee
CPT/HCPCS: 93971

== ENCOUNTER 2022-03-02 11:11 | Emergency (ER) | payer SELFPAY ==
[2022-03-02] VITALS (19 sets, daily range): BP systolic 135–176; BP diastolic 69–105; PULSE 68–89; RESP 15–24; TEMP 37.1; O2SAT 93–99
[2022-03-02] MEDS: THIAMINE 100 MG in SODIUM CHLORIDE 0.9% 100 ML 404 MG IV (12:00)
[2022-03-02] MEDS: SODIUM CHLORIDE 0.9% 1,000 ML 1000 ML IV ×2 (12:01→15:22)
[2022-03-02] MEDS: LORazepam 2 MG/ML INJ 1 MG IV (12:01)
[2022-03-02] MEDS: MULTIVITAMIN 1 TABLET 1 TAB PO (12:22)
--- NOTE | 2022-03-02 12:46 | ED.ALCOHOL ---
HPI - Alcohol <Reji Sutherland PA-C - Last Filed: 03/02/22 18:01> General Chief Complaint: Toxicology Problem Stated Complaint: drinking for t-7 Time Seen by Provider: 03/02/22 11:43 History of Present Illness HPI narrative: 46-year-old female presents to the ED status post a week of heavy alcohol consumption. Patient states that her alcohol problems started about 6-7 years ago during a stressful time in her life. Since then, patient has noted that she has relapsed into heavy alcohol consumption sporadically, mostly triggered by stress. Patient states that she had some family visiting last week, had a stressful time, relapsed into some heavy alcohol consumption over this last week. Patient's family was concerned about her, urged her to come into the ED today for help. Patient states that she went to outpatient counseling and therapy for alcohol cessation about 9 or 10 months ago, was very satisfied with the result and she went without drinking for 9 months. Patient is very eager to repeat that outpatient therapy this time around as well. Patient is here in the ED since she feels nauseous and overall unwell and dehydrated. Patient denies any tremors, agitation, seizures. Patient denies history of alcohol withdrawal. Patient does endorse some intermittent anxiety. Denies suicidal or homicidal ideation. Patient denies fever, chills, chest pain, shortness of breath, vomiting, abdominal pain, dysuria, lightheadedness, dizziness, syncope. Patient states that she has not fallen or hit her head over this last week. Patient lives with her at home, also takes care of her [id number] who is paraplegic. Patient has a daughter in college in [place], daughter is currently visiting. Patient wants to be well for her family. Related Data Previous Rx's Medication Instructions Recorded hydroxyzine HCl 25 mg tablet 25 mg PO QID PRN anxiety #20 tabs 09/16/20 escitalopram oxalate 10 mg tablet 15 mg PO DAILY #135 tabs 11/19/20 (Lexapro) Allergies Allergy/AdvReac Type Severity Reaction Status Date / Time No Known Drug Allergies Allergy Verified 04/17/21 10:39 Review of Systems <Reji Sutherland PA-C - Last Filed: 03/02/22 18:01> Review of Systems ROS Unobtainable: All systems reviewed & are unremarkable except as noted in HPI and below Constitutional Constitutional: Denies chills, Reports fatigue, Denies fever(s), Denies frequent falls, Reports lethargy and Denies weakness Eyes Eyes: Denies change in vision, Denies eye discharge, Denies irritation and Denies loss of vision ENT Ears, Nose, Mouth, and Throat: Denies change in voice, Denies dizziness, Denies neck pain, Denies sore throat and Denies throat swelling Cardiovascular Cardiovascular: Denies chest pain, Denies irregular heart rhythm, Denies lightheadedness, Denies palpitations, Denies dyspnea, Denies dyspnea on exertion and Denies orthopnea Respiratory Respiratory: Denies cough, Denies dyspnea, Denies dyspnea on exertion and Denies wheezing Gastrointestinal Gastrointestinal: Denies abdominal pain, Denies change in bowel habits, Denies diarrhea, Reports nausea and Denies vomiting Genitourinary Genitourinary: Denies hematuria, Denies flank pain, Denies urinary incontinence and Denies urinary urgency Musculoskeletal Musculoskeletal: Denies back pain, Denies muscle weakness, Denies neck pain, Denies numbness and Denies tingling Integumentary/Breasts Skin/Breast: Denies pruritus, Denies erythema, Denies rash and Denies wounds Neurologic Neurologic: Denies behavioral changes, Denies confusion, Denies dizziness, Denies frequent falls, Denies loss of vision, Denies numbness, Denies tingling and Denies weakness Psychiatric Psychiatric: Denies anxiety, Denies behavioral changes, Denies confusion, Denies depression, Denies homicidal ideation and Denies suicidal ideation Endocrine Endocrine: Reports fatigue, Denies flushing and Denies palpitations Hematologic/Lymphatic Hematologic/Lymphatic: Denies easy bruising Allergic/Immunologic Allergic/Immunologic: Denies urticaria, Denies throat swelling and Denies wheezing Patient History <Reji Sutherland PA-C - Last Filed: 03/02/22 18:01> Medical History Alcohol abuse Anemia (Unknown) Anxiety (~2014) Chicken pox (~1979) Depression (~2014) Elevated LDL cholesterol level Fibroids (~2002) Pain of right hip joint pain (12/2016) Rosacea Vitamin D deficiency (12/2016) Family History Father Cancer Mother Hypertension Brother Mental health problem Social History Smoking Status: Never smoker Tobacco: How many years used: 5 additional social history: 01/24/20: Patient lives here in [place] with her , 17-year-old daughter, 31-year-old yaneton, and her 's brother who is paralyzed and for whom she and her are caretakers. 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 which are also sold through their company. 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 Smoking Status: Never smoker alcohol intake frequency: 3 or more drinks per day Alcohol type: hard liquor Substance Use Type: does not use Exam <Reji Sutherland PA-C - Last Filed: 03/02/22 18:01> Narrative Exam Narrative: Const General:?cooperative, healthy appearing and comfortable [facility] Head:?normal to inspection Ears:?hearing grossly normal bilaterally Nose:?external nose normal Face and sinus:?normal facial exam and sinuses nontender Mouth:?oral mucosae normal Throat:?posterior oropharynx normal Eyes General:?appearance normal, both eyes and all related structures Neck Neck:?normal visual inspection and no lymphadenopathy noted Resp Effort & Inspection:?normal respiratory effort Auscultation:?clear to auscultation bilaterally Cardio Rate:?regular rate Rhythm:?regular rhythm Neuro General:?patient alert, patient awake and patient oriented x3; CIWA score 2 for nausea and mild anxiety Initial Vital Signs Initial Vital Signs: Vital Signs Blood Pressure 136/94 H 03/02/22 11:20 <Jerry Bruce DO - Last Filed: 03/02/22 18:03> Initial Vital Signs Initial Vital Signs: Vital Signs Blood Pressure 136/94 H 03/02/22 11:20 Course <Reji Sutherland PA-C - Last Filed: 03/02/22 18:01> Orders Ordered: ED Orders 03/02/22 11:53 CBC Auto Diff [Complete Blood Count AUTO DIFF] Stat CMP [Comprehensive Metabolic Panel] Stat ETOH [Ethanol (ETOH)] Stat Lactate (Lactic Acid) Stat Lipase Stat 03/02/22 13:06 EKG-12 Lead Routine 03/02/22 14:36 Lactate (Lactic Acid) Stat Discontinued Medications Sodium Chloride (Normal Saline 0.9%) 1,000 mls @ 1,000 mls/hr IV BOLUS ONE Stop: 03/02/22 12:42 Last Infusion: 03/02/22 14:16 Dose: 0 mls/hr Documented By: Admin: 03/02/22 12:01 Dose: 1,000 mls/hr Documented By: KHUSHBU Thiamine HCl 100 mg/ Sodium (Chloride) 101 mls @ 404 mls/hr IV NOW ONE Stop: 03/02/22 11:44 Last Infusion: 03/02/22 12:37 Dose: 0 mls/hr Documented By: Admin: 03/02/22 12:00 Dose: 404 mls/hr Documented By: KHUSHBU Sodium Chloride (Normal Saline 0.9%) 1,000 mls @ 1,000 mls/hr IV BOLUS ONE Stop: 03/02/22 14:29 Last Infusion: 03/02/22 16:48 Dose: 0 mls/hr Documented By: Admin: 03/02/22 15:22 Dose: 1,000 mls/hr Documented By: DEVEN Lorazepam (Lorazepam 2 Mg/Ml Inj) 1 mg IV NOW ONE Stop: 03/02/22 11:44 Last Admin: 03/02/22 12:01 Dose: 1 mg Documented By: KHUSHBU Multivitamins (Multivitamin 1 Tablet) 1 tab PO DAILY AUBREY Last Admin: 03/02/22 12:22 Dose: 1 tab Documented By: BRANDON Ondansetron HCl (Ondansetron 4 Mg/2 Ml Inj) 4 mg IV NOW ONE Stop: 03/02/22 12:43 Last Admin: 03/02/22 13:15 Dose: 4 mg Documented By: BRANDON Vital Signs Vital signs: Vital Signs - 8 hr 03/02/22 11:20 03/02/22 11:46 03/02/22 11:31 Temperature 98.8 F Pulse Rate 70 89 Respiratory Rate 15 Blood Pressure 136/94 H Pulse Oximetry 99 98 Oxygen Delivery Method Room Air Room Air 03/02/22 11:32 03/02/22 11:32 03/02/22 12:00 Temperature Pulse Rate 85 Respiratory Rate Blood Pressure 175/104 H 141/84 H Pulse Oximetry 96 Oxygen Delivery Method Room Air 03/02/22 12:00 03/02/22 12:30 03/02/22 12:30 Temperature Pulse Rate 68 71 Respiratory Rate 19 Blood Pressure 135/84 Pulse Oximetry 95 94 Oxygen Delivery Method Room Air Room Air 03/02/22 13:00 03/02/22 13:01 03/02/22 13:01 Temperature Pulse Rate 83 81 Respiratory Rate 19 Blood Pressure 149/100 H Pulse Oximetry 95 96 Oxygen Delivery Method Room Air Room Air 03/02/22 13:30 03/02/22 13:31 03/02/22 13:31 Temperature Pulse Rate 77 73 Respiratory Rate 21 22 Blood Pressure 167/105 H Pulse Oximetry 96 95 Oxygen Delivery Method Room Air 03/02/22 14:00 03/02/22 14:00 03/02/22 14:30 Temperature Pulse Rate 79 Respiratory Rate 17 Blood Pressure 153/96 H 148/87 H Pulse Oximetry 95 Oxygen Delivery Method 03/02/22 14:30 03/02/22 15:43 03/02/22 15:45 Temperature Pulse Rate 71 81 Respiratory Rate 20 Blood Pressure 141/73 H Pulse Oximetry 96 95 Oxygen Delivery Method 03/02/22 15:45 03/02/22 16:00 03/02/22 16:00 Temperature Pulse Rate 78 80 Respiratory Rate 17 Blood Pressure 142/69 H Pulse Oximetry 96 98 Oxygen Delivery Method 03/02/22 16:30 03/02/22 16:30 03/02/22 16:46 Temperature Pulse Rate 78 78 Respiratory Rate 19 24 Blood Pressure 156/87 H Pulse Oximetry 97 93 Oxygen Delivery Method 03/02/22 16:46 03/02/22 17:00 03/02/22 17:00 Temperature Pulse Rate 71 Respiratory Rate 21 Blood Pressure 176/88 H 161/87 H Pulse Oximetry 94 Oxygen Delivery Method 03/02/22 17:30 03/02/22 17:30 Temperature Pulse Rate 75 Respiratory Rate 21 Blood Pressure 149/86 H Pulse Oximetry 95 Oxygen Delivery Method Room Air <Jerry Bruce, DO - Last Filed: 03/02/22 18:03> Orders Ordered: ED Orders 03/02/22 11:53 CBC Auto Diff [Complete Blood Count AUTO DIFF] Stat CMP [Comprehensive Metabolic Panel] Stat ETOH [Ethanol (ETOH)] Stat Lactate (Lactic Acid) Stat Lipase Stat 03/02/22 13:06 EKG-12 Lead Routine 03/02/22 14:36 Lactate (Lactic Acid) Stat Discontinued Medications Sodium Chloride (Normal Saline 0.9%) 1,000 mls @ 1,000 mls/hr IV BOLUS ONE Stop: 03/02/22 12:42 Last Infusion: 03/02/22 14:16 Dose: 0 mls/hr Documented By: Admin: 03/02/22 12:01 Dose: 1,000 mls/hr Documented By: KHUSHBU Thiamine HCl 100 mg/ Sodium (Chloride) 101 mls @ 404 mls/hr IV NOW ONE Stop: 03/02/22 11:44 Last Infusion: 03/02/22 12:37 Dose: 0 mls/hr Documented By: Admin: 03/02/22 12:00 Dose: 404 mls/hr Documented By: KHUSHBU Sodium Chloride (Normal Saline 0.9%) 1,000 mls @ 1,000 mls/hr IV BOLUS ONE Stop: 03/02/22 14:29 Last Infusion: 03/02/22 16:48 Dose: 0 mls/hr Documented By: Admin: 03/02/22 15:22 Dose: 1,000 mls/hr Documented By: DEVEN Lorazepam (Lorazepam 2 Mg/Ml Inj) 1 mg IV NOW ONE Stop: 03/02/22 11:44 Last Admin: 03/02/22 12:01 Dose: 1 mg Documented By: KHUSHBU Multivitamins (Multivitamin 1 Tablet) 1 tab PO DAILY AUBREY Last Admin: 03/02/22 12:22 Dose: 1 tab Documented By: BRANDON Ondansetron HCl (Ondansetron 4 Mg/2 Ml Inj) 4 mg IV NOW ONE Stop: 03/02/22 12:43 Last Admin: 03/02/22 13:15 Dose: 4 mg Documented By: BRANDON Vital Signs Vital signs: Vital Signs - 8 hr 03/02/22 11:20 03/02/22 11:46 03/02/22 11:31 Temperature 98.8 F Pulse Rate 70 89 Respiratory Rate 15 Blood Pressure 136/94 H Pulse Oximetry 99 98 Oxygen Delivery Method Room Air Room Air 03/02/22 11:32 03/02/22 11:32 03/02/22 12:00 Temperature Pulse Rate 85 Respiratory Rate Blood Pressure 175/104 H 141/84 H Pulse Oximetry 96 Oxygen Delivery Method Room Air 03/02/22 12:00 03/02/22 12:30 03/02/22 12:30 Temperature Pulse Rate 68 71 Respiratory Rate 19 Blood Pressure 135/84 Pulse Oximetry 95 94 Oxygen Delivery Method Room Air Room Air 03/02/22 13:00 03/02/22 13:01 03/02/22 13:01 Temperature Pulse Rate 83 81 Respiratory Rate 19 Blood Pressure 149/100 H Pulse Oximetry 95 96 Oxygen Delivery Method Room Air Room Air 03/02/22 13:30 03/02/22 13:31 03/02/22 13:31 Temperature Pulse Rate 77 73 Respiratory Rate 21 22 Blood Pressure 167/105 H Pulse Oximetry 96 95 Oxygen Delivery Method Room Air 03/02/22 14:00 03/02/22 14:00 03/02/22 14:30 Temperature Pulse Rate 79 Respiratory Rate 17 Blood Pressure 153/96 H 148/87 H Pulse Oximetry 95 Oxygen Delivery Method 03/02/22 14:30 03/02/22 15:43 03/02/22 15:45 Temperature Pulse Rate 71 81 Respiratory Rate 20 Blood Pressure 141/73 H Pulse Oximetry 96 95 Oxygen Delivery Method 03/02/22 15:45 03/02/22 16:00 03/02/22 16:00 Temperature Pulse Rate 78 80 Respiratory Rate 17 Blood Pressure 142/69 H Pulse Oximetry 96 98 Oxygen Delivery Method 03/02/22 16:30 03/02/22 16:30 03/02/22 16:46 Temperature Pulse Rate 78 78 Respiratory Rate 19 24 Blood Pressure 156/87 H Pulse Oximetry 97 93 Oxygen Delivery Method 03/02/22 16:46 03/02/22 17:00 03/02/22 17:00 Temperature Pulse Rate 71 Respiratory Rate 21 Blood Pressure 176/88 H 161/87 H Pulse Oximetry 94 Oxygen Delivery Method 03/02/22 17:30 03/02/22 17:30 Temperature Pulse Rate 75 Respiratory Rate 21 Blood Pressure 149/86 H Pulse Oximetry 95 Oxygen Delivery Method Room Air MDM - Alcohol <Reji Sutherland PA-C - Last Filed: 03/02/22 18:01> Lab Data Result diagrams: 03/02/22 11:53 03/02/22 11:53 Labs: Lab Results 03/02/22 03/02/22 03/02/22 Range/Units 11:53 11:53 11:53 WBC 6.3 (4.5-11.0) X10^3/uL RBC 4.80 (4.0-5.2) X10^6/uL Hgb 14.5 (12.0-16.0) g/dL Hct 41.9 (36-46) % MCV 87.3 (80-100) fL MCH 30.2 (26-34) PG MCHC 34.6 (30-36) % RDW 13.7 (11.6-14.8) % Plt Count 332 (150-400) X10^3/uL Neut % (Auto) 59.9 (50-75) % Lymph % (Auto) 33.0 (25-40) % Carroll % (Auto) 5.9 (3-14) % Eos % (Auto) 0.1 L (2-4) % Baso % (Auto) 1.1 (0-2) % Neut # (Auto) 3800 (8128-2287) /uL Lymph # (Auto) 2100 (1239-5801) /uL Carroll # (Auto) 400 (0-900) /uL Eos # (Auto) 0 (0-450) /uL Baso # (Auto) 100 (0-100) /uL Sodium 140 (137-145) mmol/L Potassium 4.2 (3.4-5.1) mmol/L Chloride 101 (98-107) mmol/L Carbon Dioxide 24 (22-32) mmol/L BUN 17 (7-17) mg/dL Creatinine 0.59 (0.52-1.04) mg/dL Estimated GFR > 60 (>60) mL/min BUN/Creatinine Ratio 28.8 H (6-22) Glucose 102 H (70-100) mg/dL Lactate 2.3 H (0.7-2.1) mmol/L Calcium 8.3 L (8.4-10.2) mg/dL Total Bilirubin 0.5 (0.2-1.3) mg/dL AST 49 H (14-36) IU/L ALT 27 (<35) IU/L Alkaline Phosphatase 86 (38-126) U/L Total Protein 8.2 (6.3-8.2) g/dL Albumin 4.3 (3.5-5.0) g/dL Globulin 3.9 (1.7-4.1) g/dL Albumin/Globulin Ratio 1.1 (1.0-2.8) Lipase (23-300) U/L Ethyl Alcohol 222 H ( - 10) mg/dL 03/02/22 03/02/22 03/02/22 Range/Units 11:53 14:36 16:54 WBC (4.5-11.0) X10^3/uL RBC (4.0-5.2) X10^6/uL Hgb (12.0-16.0) g/dL Hct (36-46) % MCV (80-100) fL MCH (26-34) PG MCHC (30-36) % RDW (11.6-14.8) % Plt Count (150-400) X10^3/uL Neut % (Auto) (50-75) % Lymph % (Auto) (25-40) % Carroll % (Auto) (3-14) % Eos % (Auto) (2-4) % Baso % (Auto) (0-2) % Neut # (Auto) (4623-2550) /uL Lymph # (Auto) (3873-9888) /uL Carroll # (Auto) (0-900) /uL Eos # (Auto) (0-450) /uL Baso # (Auto) (0-100) /uL Sodium (137-145) mmol/L Potassium (3.4-5.1) mmol/L Chloride (98-107) mmol/L Carbon Dioxide (22-32) mmol/L BUN (7-17) mg/dL Creatinine (0.52-1.04) mg/dL Estimated GFR (>60) mL/min BUN/Creatinine Ratio (6-22) Glucose (70-100) mg/dL Lactate 2.3 H 1.9 (0.7-2.1) mmol/L Calcium (8.4-10.2) mg/dL Total Bilirubin (0.2-1.3) mg/dL AST (14-36) IU/L ALT (<35) IU/L Alkaline Phosphatase (38-126) U/L Total Protein (6.3-8.2) g/dL Albumin (3.5-5.0) g/dL Globulin (1.7-4.1) g/dL Albumin/Globulin Ratio (1.0-2.8) Lipase 94 (23-300) U/L Ethyl Alcohol ( - 10) mg/dL Point of Care Testing Test Results Negative Urine Dip Bedside Urine Glucose Negative Bedside Urine Bilirubin - Negative Bedside Urine Ketone - Negative Urine Specific [place] 1.005 Bedside Urine Occult Blood - Negative Bedside Urine pH 7.5 Bedside Urine Protein - Negative Bedside Urine Urobilinogen - Negative Bedside Urine Nitrite - Negative Bedside Urine Leukocytes - Negative Esterase MDM Narrative Medical decision making narrative: 46-year-old female presents to the ED status post a week of heavy alcohol consumption. Concern for dehydration versus electrolyte derangement versus other. Will obtain labs, ETOH. Will give IV fluids, thiamine, Ativan, Zofran. CIWA score to for mild anxiety, nausea. Will reassess. Lactate elevated to 2.3. Will repeat after 2 L of IV fluids. Lactate down to 1.9 after 2 L of fluid. Patient is feeling well. No signs of withdrawal. Patient was seen by social work for some resources. Patient agrees to follow-up with the same outpatient therapy that she did last time with [facility]. ED return precautions regarding withdrawal symptoms were discussed with patient. Patient verbalized understanding. <Jerry Bruce, DO - Last Filed: 03/02/22 18:03> Lab Data Labs: Lab Results 03/02/22 03/02/22 03/02/22 Range/Units 11:53 11:53 11:53 WBC 6.3 (4.5-11.0) X10^3/uL RBC 4.80 (4.0-5.2) X10^6/uL Hgb 14.5 (12.0-16.0) g/dL Hct 41.9 (36-46) % MCV 87.3 (80-100) fL MCH 30.2 (26-34) PG MCHC 34.6 (30-36) % RDW 13.7 (11.6-14.8) % Plt Count 332 (150-400) X10^3/uL Neut % (Auto) 59.9 (50-75) % Lymph % (Auto) 33.0 (25-40) % Carroll % (Auto) 5.9 (3-14) % Eos % (Auto) 0.1 L (2-4) % Baso % (Auto) 1.1 (0-2) % Neut # (Auto) 3800 (8475-8474) /uL Lymph # (Auto) 2100 (9857-0913) /uL Carroll # (Auto) 400 (0-900) /uL Eos # (Auto) 0 (0-450) /uL Baso # (Auto) 100 (0-100) /uL Sodium 140 (137-145) mmol/L Potassium 4.2 (3.4-5.1) mmol/L Chloride 101 (98-107) mmol/L Carbon Dioxide 24 (22-32) mmol/L BUN 17 (7-17) mg/dL Creatinine 0.59 (0.52-1.04) mg/dL Estimated GFR > 60 (>60) mL/min BUN/Creatinine Ratio 28.8 H (6-22) Glucose 102 H (70-100) mg/dL Lactate 2.3 H (0.7-2.1) mmol/L Calcium 8.3 L (8.4-10.2) mg/dL Total Bilirubin 0.5 (0.2-1.3) mg/dL AST 49 H (14-36) IU/L ALT 27 (<35) IU/L Alkaline Phosphatase 86 (38-126) U/L Total Protein 8.2 (6.3-8.2) g/dL Albumin 4.3 (3.5-5.0) g/dL Globulin 3.9 (1.7-4.1) g/dL Albumin/Globulin Ratio 1.1 (1.0-2.8) Lipase (23-300) U/L Ethyl Alcohol 222 H ( - 10) mg/dL 03/02/22 03/02/22 03/02/22 Range/Units 11:53 14:36 16:54 WBC (4.5-11.0) X10^3/uL RBC (4.0-5.2) X10^6/uL Hgb (12.0-16.0) g/dL Hct (36-46) % MCV (80-100) fL MCH (26-34) PG MCHC (30-36) % RDW (11.6-14.8) % Plt Count (150-400) X10^3/uL Neut % (Auto) (50-75) % Lymph % (Auto) (25-40) % Carroll % (Auto) (3-14) % Eos % (Auto) (2-4) % Baso % (Auto) (0-2) % Neut # (Auto) (1087-5892) /uL Lymph # (Auto) (3371-1475) /uL Carroll # (Auto) (0-900) /uL Eos # (Auto) (0-450) /uL Baso # (Auto) (0-100) /uL Sodium (137-145) mmol/L Potassium (3.4-5.1) mmol/L Chloride (98-107) mmol/L Carbon Dioxide (22-32) mmol/L BUN (7-17) mg/dL Creatinine (0.52-1.04) mg/dL Estimated GFR (>60) mL/min BUN/Creatinine Ratio (6-22) Glucose (70-100) mg/dL Lactate 2.3 H 1.9 (0.7-2.1) mmol/L Calcium (8.4-10.2) mg/dL Total Bilirubin (0.2-1.3) mg/dL AST (14-36) IU/L ALT (<35) IU/L Alkaline Phosphatase (38-126) U/L Total Protein (6.3-8.2) g/dL Albumin (3.5-5.0) g/dL Globulin (1.7-4.1) g/dL Albumin/Globulin Ratio (1.0-2.8) Lipase 94 (23-300) U/L Ethyl Alcohol ( - 10) mg/dL Point of Care Testing Test Results Negative Urine Dip Bedside Urine Glucose Negative Bedside Urine Bilirubin - Negative Bedside Urine Ketone - Negative Urine Specific [place] 1.005 Bedside Urine Occult Blood - Negative Bedside Urine pH 7.5 Bedside Urine Protein - Negative Bedside Urine Urobilinogen - Negative Bedside Urine Nitrite - Negative Bedside Urine Leukocytes - Negative Esterase Discharge Plan Departure Patient Disposition: Home Clinical Impression: Alcohol abuse Instructions: DI for Alcohol Use Disorder Activity Restrictions/Additional Instructions: You were evaluated in the ED today for nausea from alcohol consumption. Your labs showed some dehydration, but were otherwise normal. Your dehydration is likely from the alcohol consumption. We gave you IV fluids, thiamine, Zofran for your symptoms. I applaud your desire to detox from the alcohol habit, and I wish you well as you embrace outpatient therapy as you did the last time. There is always a possibility that when you stop drinking alcohol after heavy alcohol use, you may go into alcohol withdrawal. Symptoms of alcohol withdrawal include tremors, anxiety, agitation, sweating, seizures, coma, . If you experience any tremors, agitation, sweating or seizures, please call 911 and return to the ED as soon as possible. Prescriptions: No Action escitalopram oxalate [Lexapro] 10 mg tablet 15 mg PO DAILY Qty: 135 3RF hydroxyzine HCl 25 mg tablet 25 mg PO QID PRN (Reason: anxiety) Qty: 20 3RF Referrals: Michoacano Jiménez ARNP [Primary Care Provider] - Visit Report Forms: Patient Portal/API <Jerry Bruce DO - Last Filed: 03/02/22 18:03> Cosign ED Attending Cosharleyature Attestation: Dr Bruce Co-Sign Statement: I was available for consultation during this patient's emergency department visit. This chart is signed by myself for administrative purposes only. I did not have direct contact with this patient during this visit. They were seen independently by the APC.
[2022-03-02] MEDS: ONDANSETRON 4 MG/2 ML INJ IV (13:15)
[2022-03-02 13:24] LABS: Add Manual Diff / Slide Review NO; Basophils Absolute Auto 100 /uL (0-100); Basophils Percent Auto 1.1 % (0-2); Eosinophils Absolute Auto 0 /uL (0-450); Eosinophils Percent Auto 0.1 % (2-4); Hematocrit 41.9 % (36-46); Hemoglobin 14.5 g/dL (12.0-16.0); Lymphocytes Absolute Auto 2100 /uL (1100-4500); Mean Corpuscular HGB Conc 34.6 % (30-36); Mean Corpuscular Hemoglobin 30.2 PG (26-34); Mean Corpuscular Volume 87.3 fL (80-100); Monocytes Absolute Auto 400 /uL (0-900); Monocytes Percent Auto 5.9 % (3-14); Neutrophils Absolute Auto 3800 /uL (1500-7000); Neutrophils Percent Auto 59.9 % (50-75); Platelet Count 332 X10^3/uL (150-400); Red Cell Distribution Width 13.7 % (11.6-14.8); White Blood Cell Count 6.3 X10^3/uL (4.5-11.0)
[2022-03-02 13:27] LABS: Alanine Aminotransferase 27 IU/L (<35); Albumin 4.3 g/dL (3.5-5.0); Albumin Globulin Ratio 1.1 (1.0-2.8); Alkaline Phosphatase 86 U/L (38-126); Aspartate Aminotransferase 49 IU/L (14-36); BUN Creatinine Ratio 28.8 (6-22); Bilirubin Total 0.5 mg/dL (0.2-1.3); Blood Urea Nitrogen 17 mg/dL (7-17); Calcium 8.3 mg/dL (8.4-10.2); Carbon Dioxide 24 mmol/L (22-32); Chloride 101 mmol/L (98-107); Estimated Glomerular Filt Rate > 60 mL/min (>60); Ethanol (ETOH) 222 mg/dL; Globulin 3.9 g/dL (1.7-4.1); Glucose 102 mg/dL (70-100); HEMOLYSIS 18 (0-50); Lactate (Lactic Acid) 2.3 mmol/L (0.7-2.1); Potassium 4.2 mmol/L (3.4-5.1); Sodium 140 mmol/L (137-145); Total Protein 8.2 g/dL (6.3-8.2)
[2022-03-02 13:46] LABS: Lipase 94 U/L (23-300)
--- NOTE | 2022-03-02 14:12 | CM.SWNOTE ---
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 Pt reports that she will drink all day from morning until nighttime. Pt reports drinking approximately 2 bottles of wine daily. Precipitating Event(s) Pt reports several life stressors, including disabled brother in law that lives in her home, visiting in-laws, and her business. Patient Strengths Pt recognizes that her drinking is an issue for her and wants to change. Has had previous success through an IOP program. Current Behavioral Health Provider(s) none. Include Facility, Provider, Ph. # Family Hx of Behavioral Abuse none. Rehab Facilities? ((Date(s), Location(s) Pt previously engaged with [facility] ) Intensive Outpatient Program in April of 2021. History of Withdrawal? Seizures? none. 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 Legal Concerns Legal Matters - Outstanding Issues none. Mental Status Orientation (Person/Place/Time) Pt is oriented to person, place, time. Stated Mood I feel stupid and guilty. Affect (Congruent with Mood?) Broad. Thought Content - Specify/Describe denies AH or VH. Obsessions, Delusions, Hallucinations Thought Processes (Epmsbbf-Urpbhxim-Zdom Logical. Mgukbxas-Hapfivuk-Wfzqnxtkhl- Ycnqndzepvthdk-Wktsrlu-Laytvzshdqyc- Thought Blocking) Speech (Doxqdq-Ngzw-Eoplkmq-Rapid-Soft- normal. Loud-Pressured) Motor (Ecjkbh-Wgkcyotbw-Jlmf-Other) normal. Insight (Hvvf-Kmbz-Qimg/Limited) Good. Judgement (Vqwa-Yaye-Ojxm/Limited) Good. Impulse Control (Adequate-Impaired) Adequate. Memory (Mcnmumwwv-Ofvlcu-Vchpaw, immediate. Impaired-Intact) Concentration (Intact-Impaired) intact. Attention (Intact-Impaired) intact. Behavior (Appropriate-Inappropriate) appropriate. Risk Assessment Suicidal Ideation (Plan) Yes: passive. no plan. Homicidal Ideation (Plan) No Comment Pt reports passive SI stating, Sometimes I don't want to feel anything. I just want it all to go away. Intervention Intervention SW met with pt to discuss drinking. Pt is hoping to re- engage with [facility] program. Pt is not interested in inpatient detox at this time. SW reviewed strategies, goals, and coping mechanisms with pt . SW provided pt with resources. Pt endorses passive SI but does not have a plan. Pt reports that protective factors are her family and her dog. Plan RA Plan Pt will discharge home with resources and re-engage with outpatient services in community.
[2022-03-02 15:06] LABS: Lactate (Lactic Acid) 2.3 mmol/L (0.7-2.1)
[2022-03-02 15:14] LABS: Reflexed Lactate in 2 Hours Y
[2022-03-02 16:57] LABS: Reflexed Lactate in 2 Hours Y
[2022-03-02 17:15] LABS: Lactate 2HR (Lactic Acid Rflx) 1.9 mmol/L (0.7-2.1)
== END 2022-03-02 17:59 | disposition home or self-care (01) ==
PROVIDERS: Emergency Provider Student in an Organized Health Care Education/Training Program; PCP Registered Nurse Diabetes Educator
DX: F10.10 Alcohol abuse, uncomplicated (principal)
CPT/HCPCS: 80053; 80320; 81003; 81025; 83605; 83690; 85025; 93005; 96361; 96374; 96375; 99284; J2060; J2405

== ENCOUNTER → 2022-06-23 10:16 | Outpatient (CLI) | payer OTHER, SELFPAY ==
--- NOTE | 2022-06-23 10:17 | DI.RAD.S_ITS ---
PROCEDURE: XR KNEE RT 3V INDICATIONS: medial pain TECHNIQUE: 3 views of the knee were acquired. COMPARISON: None. FINDINGS: Bones: No fractures or dislocations. No suspicious bony lesions. Nixz-sn-yryyvmdo medial compartment degenerative narrowing. No erosions. Minimal periarticular osteophytes. Mild lateral patellar subluxation. Soft tissues: No joint effusion. No suspicious soft tissue calcifications. IMPRESSION: Early arthritic change within the medial compartment. Dictated by: Monica Walker M.D. on 06/23/2022 at 20:36 Approved by: Monica Walker M.D. on 06/23/2022 at 20:37
== END ==
PROVIDERS: PCP Registered Nurse Diabetes Educator; Referring Provider Family Medicine; Visit Provider Family Medicine
DX: M25.561 Pain in right knee (principal)
CPT/HCPCS: 73562

== ENCOUNTER → 2022-10-04 09:57 | Outpatient (CLI) | payer OTHER, SELFPAY ==
[2022-10-04 11:11] LABS: Hematocrit 38.5 % (36-46); Hemoglobin 13.1 g/dL (12.0-16.0); Mean Corpuscular Hemoglobin 31.4 PG (26-34); Mean Corpuscular Volume 92.2 fL (80-100); Platelet Count 335 X10^3/uL (150-400); Red Blood Cell Count 4.17 X10^6/uL (4.0-5.2); Red Cell Distribution Width 14.2 % (11.6-14.8); White Blood Cell Count 7.2 X10^3/uL (4.5-11.0)
[2022-10-04 12:09] LABS: Alanine Aminotransferase 19 IU/L (<35); Albumin 4.3 g/dL (3.5-5.0); Albumin Globulin Ratio 1.2 (1.0-2.8); Alkaline Phosphatase 67 U/L (38-126); Aspartate Aminotransferase 25 IU/L (14-36); BUN Creatinine Ratio 24.1 (6-22); Bilirubin Total 0.6 mg/dL (0.2-1.3); Blood Urea Nitrogen 13 mg/dL (7-17); Calcium 9.1 mg/dL (8.4-10.2); Carbon Dioxide 30 mmol/L (22-32); Chloride 104 mmol/L (98-107); Cholesterol 202 mg/dL (140-199); Estimated Glomerular Filt Rate > 60 mL/min (>60); Globulin 3.7 g/dL (1.7-4.1); Glucose 95 mg/dL (70-100); HDL Cholesterol 61 mg/dL (40-60); HEMOLYSIS < 15 (0-50); LDL Cholesterol Calculated 115 mg/dL (<100); Sodium 138 mmol/L (137-145); Triglycerides 131 mg/dL (35-150)
[2022-10-04 12:35] LABS: TSH w/ Reflex to FT4 1.69 uIU/mL (0.47-4.68)
== END ==
PROVIDERS: PCP Registered Nurse Diabetes Educator; Referring Provider Registered Nurse Diabetes Educator; Visit Provider Registered Nurse Diabetes Educator
DX: Z00.00 Encounter for general adult medical examination without abnormal findings (principal); E78.00 Pure hypercholesterolemia, unspecified; R74.8 Abnormal levels of other serum enzymes
CPT/HCPCS: 36415; 80053; 80061; 84443; 85027

== ENCOUNTER → 2022-11-16 15:54 | Outpatient (CLI) | payer OTHER, SELFPAY ==
--- NOTE | 2022-11-16 16:22 | DI.MG.S_ITS ---
Patient Name: ADRIEL GLASS date: 1975 Sex: F Attending Physician: Tino Indications: Date: 11/17/2022 08:55 At the request of: JOSIANE ARCHULETA Procedure: MM screening mammo BI BILATERAL DIGITAL SCREENING MAMMOGRAM 3D/2D WITH CAD: 11/16/2022 CLINICAL: Routine screening. Comparison is made to exams dated: 03/19/2020 mammogram and 12/21/2016 mammogram - [facility]. There are scattered areas of fibroglandular density in both breasts (category b / 25%-50% glandular tissue). Current study was also evaluated with a Computer Aided Detection (CAD) system. No significant masses, calcifications, or other findings are seen in either breast. There has been no significant interval change. IMPRESSION: NEGATIVE There is no mammographic evidence of malignancy. A 1 year screening mammogram is recommended. Based on the Tyrer Cuzick model (a risk assessment model) the patient?s lifetime risk is 8.0% and her 10 year risk is 1.7%. According to the ACR, ACS, and NCCN guidelines, an annual breast MRI exam along with mammogram is recommended if the patient?s lifetime risk is 20% or greater. This exam was interpreted at Station ID: [id number]. Continued Report - Page 2 of 2 Patient Name: ADRIEL GLASS date: 1975 Sex: F Attending Physician: Tino Indications: Date: 11/17/2022 08:55 At the request of: JOSIANE ARCHULETA Procedure: MM screening mammo BI NOTE: For mammograms, a report in lay terms will be sent to the patient. Approximately 15% of breast malignancies will not be visualized mammographically. In the management of a palpable breast mass, a negative mammogram must not discourage biopsy of a clinically suspicious lesion. Electronically Signed By: Jermaine noble/chato:11/17/2022 08:55:09 letter sent: Normal Exam ACR BI-RADS Category 1: Negative 3341F
== END ==
PROVIDERS: PCP Registered Nurse Diabetes Educator; Referring Provider Registered Nurse Diabetes Educator; Visit Provider Registered Nurse Diabetes Educator
DX: Z12.31 Encounter for screening mammogram for malignant neoplasm of breast (principal)
CPT/HCPCS: 77063; 77067

== ENCOUNTER 2022-12-24 13:32 | Day surgery (SDC) | payer OTHER, SELFPAY ==
--- NOTE | 2022-12-24 | PATH_ITS ---
[facility] Accession Number: [id number] No. of containers..04 Tissue . 01 Material submitted: . PART A: colon - SIGMOID COLON POLYP PART B: colon - DESCENDING COLON POLYP PART C: colon - SPLENIC FLEXURE POLYP PART D: colon - SMALL DESCENDING COLON POLYP . 01 Diagnosis: A. Sigmoid Colon Polyp: Tubular adenoma. . B. Descending Colon Polyp: Tubular adenoma. . C. Splenic Flexure Polyp: Hyperplastic polyp. . D. Small Descending Colon Polyp: Hyperplastic polyp. [facility] 12/30/2022 1529 Local . 01 Electronically signed: . Дмитрий Michael MD, PhD, Pathologist NPI- [id number] . 01 Gross description: . Part A: SIGMOID COLON POLYP: Received in formalin is 1 fragment(s) of saravia, soft tissue measuring 0.4 x 0.3 x 0.3 cm submitted entirely in 1 cassette(s) Part B: DESCENDING COLON POLYP: Received in formalin is 1 fragment(s) of saravia, soft tissue measuring 0.6 x 0.5 x 0.5 cm submitted entirely in 1 cassette(s) Part C: SPLENIC FLEXURE POLYP: Received in formalin are 2 fragment(s) of saravia, soft tissue measuring 0.1 x 0.1 x 0.1 cm to 0.4 x 0.3 x 0.2 cm submitted entirely in 1 cassette(s) Part D: SMALL DESCENDING COLON POLYP: Received in formalin is 1 fragment(s) of saravia, soft tissue measuring 0.3 x 0.3 x 0.3 cm submitted entirely in 1 cassette(s) /LUIS ALBERTO 12/28/2022 1942 Local . 01 Pathologist provided ICD-10: D12.5, D12.4 . 01 CPT . 918325, 198747, 558088, 101577 Performed at: [facility] [address] [address], [place], [place] [id number] MD Jose Yee MD Phone: [phone]
[2022-12-24 14:13] VITALS: BP 145/91; PULSE 68; RESP 16; TEMP 36.1; O2SAT 98; BMI 30.2
[2022-12-24] MEDS: LACTATED RINGERS 1,000 ML 42 ML IV (14:42)
--- NOTE | 2022-12-24 15:41 | PM.HP.1 ---
History of Present Illness History of Present Illness Date Patient Seen: 12/24/22 Time Patient Seen: 15:41 Chief complaint: Colonoscopy Narrative: 47-year-old female presents today for her 1st screening colonoscopy. She is no family history of colon cancer and no symptoms of bleeding cramping changes in bowel habits. Her daughter's friend from [employer] got diagnosed with colon cancer so she is trying to be on top of her screening as well. She has no other questions and would like to proceed. [facility] Medical History Alcohol abuse Anemia (Unknown) Anxiety (~2014) Chicken pox (~1979) Depression (~2014) Dyslipidemia Elevated LDL cholesterol level Essential hypertension Fibroids (~2002) Pain of right hip joint pain (12/2016) Rosacea Vitamin D deficiency (12/2016) Family History Father Cancer Mother Hypertension Brother Mental health problem Social History household members: spouse Smoking Status: Never smoker Tobacco: How many years used: 5 additional social history: 01/24/20: Patient lives here in [place] with her , 17-year-old daughter, 31-year-old yaneton, and her 's brother who is paralyzed and for whom she and her are caretakers. 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 which are also sold through their company. 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 Home Medications and Allergies Home Medications Medication Instructions Recorded Confirmed Type escitalopram oxalate 10 mg tablet 10 mg PO DAILY #90 tabs 08/03/22 12/24/22 Rx (Lexapro) lisinopril 10 mg tablet 10 mg PO DAILY #30 tabs 11/11/22 12/24/22 Rx sodium,potassium,mag sulfates 17.5 See Rx Instructions PO .COMPLEX 11/25/22 Rx gram-3.13 gram-1.6 gram oral soln #354 mL (Suprep Bowel Prep Kit) Allergies Allergy/AdvReac Type Severity Reaction Status Date / Time No Known Drug Allergies Allergy Verified 12/24/22 14:11 Exam Vital Signs (past 8 hours): - 12/24/22 14:13 Temperature 97.0 F L Pulse Rate 68 Respiratory Rate 16 Blood Pressure 145/91 H Pulse Oximetry 98 Oxygen Delivery Method Room Air Oxygen Delivery Method Room Air Const General: cooperative, healthy appearing and comfortable Nutritional Appearance: average body habitus HENMT Head: normal to inspection Eyes General: appearance normal, both eyes and all related structures Resp Effort & Inspection: normal respiratory effort and able to speak in complete sentences GI Palpation: soft and No tender Assessment & Plan Assessment and plan (1) Colon cancer screening: Status: Acute Assessment & Plan narrative: Presents today for screening colonoscopy I discussed the risks benefits and alternatives including but not limited to perforation of the colon and an incomplete exam she fully understands these risks and would like to proceed.
[2022-12-24 16:24] VITALS: BP 106/66; PULSE 63; RESP 16; TEMP 36.1; O2SAT 97
--- NOTE | 2022-12-24 16:24 | PM.OP.COLON ---
Operative Date/Time/Diagnoses Date of procedure: 12/24/22 Time of procedure: 16:24 Pre-op diagnosis: Screening for colon cancer no family history Post-op diagnosis: same Procedure & Clinicians Study performed: Colonoscopy and biopsy Same procedure as scheduled: Yes Indications: Screening for colon cancer no family history Surgeon: Oliva Espino Procedure Notes Procedure in detail: Patient was taken to the endoscopy suite and placed in a left lateral decubitus position. A time-out was performed. With the help of anesthesiologist conscious sedation was induced and monitored throughout the case. A digital rectal exam was performed and there were no masses or strictures. The colonoscope was introduced into the anal canal there was 1 large pedunculated polyp seen in the sigmoid colon that was snared upon entry and suctioned into the canister and sent for pathology. A 2nd similar least sized pedunculated polyp was seen in the descending colon and removed and sent for pathology in the same way. The scope was then advanced through to the cecum. A photograph of the appendiceal orifice was obtained. The bowel prep was good [place] bowel prep score of 2. Upon withdrawal 2 additional small polyps were seen and removed with biopsy forceps 1 in the splenic flexure 1 in the descending colon. There were multiple scattered sigmoid diverticula. The scope was then withdrawn for a total of 20 minutes including biopsies. The scope was then retroflexed and a photograph of the internal hemorrhoidal piles was obtained. Findings: divertiulosis and polyp(s) Specimen(s): other (1. Large (about 8-9mm) pedunculated sigmoid polyp 2. Similar descending colon polyp 3. Small splenic flexure polyp 4. Small descending colon polyp ) Complications: none Post-procedure Plan for aftercare: Depending on the pathology here I will recommend a follow-up colonoscopy in 3-5 years based on the size and number of polyps. I do recommend a fiber supplement especially for anyone with polyps or diverticula which were seen incidentally here.
[2022-12-24 16:30] VITALS: BP 110/72; PULSE 60; RESP 15; O2SAT 100
[2022-12-24 16:35] VITALS: BP 125/75; PULSE 63; RESP 18; O2SAT 100
[2022-12-24 16:47] VITALS: BP 125/87; PULSE 60; RESP 13; O2SAT 100
[2022-12-24 17:00] VITALS: BP 127/86; PULSE 65; RESP 13; TEMP 36.3; O2SAT 100
== END 2022-12-24 17:00 | disposition home or self-care (01) ==
PROVIDERS: PCP Registered Nurse Diabetes Educator; Referring Provider Surgery; Visit Provider Surgery
PROC: 0DJD8ZZ Inspection of Lower Intestinal Tract, Via Natural or Artificial Opening Endoscopic (ICD-10-PCS; CPT 45378; principal; 2022-12-24 14:30)
DX: Z12.11 Encounter for screening for malignant neoplasm of colon (principal); K57.30 Diverticulosis of large intestine without perforation or abscess without bleeding; D12.5 Benign neoplasm of sigmoid colon; D12.4 Benign neoplasm of descending colon
CPT/HCPCS: 45380; J2704

== ENCOUNTER → 2023-03-14 07:33 | Outpatient (CLI) | payer OTHER, SELFPAY ==
--- NOTE | 2023-03-14 08:00 | DI.US.S_ITS ---
PROCEDURE: US PELVIC COMPLETE INDICATIONS: FOLLOW UP FIBROIDS TECHNIQUE: Real-time scanning was performed of the pelvic organs, with image documentation. Additional endovaginal scanning was necessary due to incomplete visualization of the adnexal and endometrial structures by transabdominal scanning. COMPARISON: [facility], , US PELVIC COMPLETE, 03/28/2020, 11:01. FINDINGS: Uterus: Uterus is anteverted and enlarged in size at 11.2 x 8.8 x 9.7 cm. The myometrium is heterogeneous. There are subendometrial echogenic linear striations and hyperechoic islands. The endometrium measures 4.7 mm combined thickness. Trace fluid in the cervix. Multiple uterine fibroids. For example: -right anterior subserosal/intramural, measures 9 x 9 x 5.9 cm, previously 6.9 x 5.8 x 4.2 cm -left anterior intramural measures 7.3 x 6.1 x 5.7 cm, previously 7.2 x 6.1 x 5.7 cm -mid posterior intramural measures 2.8 x 2.4 x 1.7 cm (new) Ovaries: The right ovary measures 3.6 x 1.6 x 2.6 cm, with a calculated ovarian volume of 7.8 cc. The left ovary is not well seen. The right ovary has a normal sonographic appearance. Less than 12 follicles can be seen in the right ovary. No adnexal masses are seen. Other: No pathologic free abdominal or pelvic fluid. IMPRESSION: 1. Enlarged fibroid uterus. Compared to prior pelvic ultrasound dated March 28, 2020, 1 of the fibroids has increased in size measuring 9 x 9 x 5.9 cm, previously 6.9 x 5.8 x 4.2 cm. 2. Heterogeneous myometrium which may be seen in the setting of adenomyosis. 3. normal right ovary. Left ovary is not well seen. If clinically warranted, consider referral to [facility] Interventional Radiology for uterine artery embolization. Dictated by: Rod Hurst M.D. on 03/14/2023 at 13:03 Approved by: Rod Hurst M.D. on 03/14/2023 at 13:20
[2023-03-14 08:45] LABS: BUN Creatinine Ratio 27.1 (6-22); Blood Urea Nitrogen 16 mg/dL (7-17); Calcium 9.6 mg/dL (8.4-10.2); Carbon Dioxide 26 mmol/L (22-32); Chloride 100 mmol/L (98-107); Estimated Glomerular Filt Rate > 60 mL/min (>60); Glucose 94 mg/dL (70-100); HEMOLYSIS < 15 (0-50); Potassium 4.4 mmol/L (3.4-5.1); Sodium 133 mmol/L (137-145)
== END ==
PROVIDERS: PCP Registered Nurse Diabetes Educator; Referring Provider Registered Nurse Diabetes Educator; Visit Provider Registered Nurse Diabetes Educator
DX: D25.1 Intramural leiomyoma of uterus (principal); D25.2 Subserosal leiomyoma of uterus; N85.2 Hypertrophy of uterus; I10 Essential (primary) hypertension
CPT/HCPCS: 36415; 76830; 76856; 80048

== ENCOUNTER → 2024-03-27 08:46 | Outpatient (CLI) | payer OTHER, SELFPAY ==
[2024-03-27 10:20] LABS: Hematocrit 42.4 % (36-46); Hemoglobin 14.2 g/dL (12.0-16.0); Mean Corpuscular HGB Conc 33.5 % (30-36); Mean Corpuscular Hemoglobin 30.6 PG (26-34); Mean Corpuscular Volume 91.4 fL (80-100); Platelet Count 345 X10^3/uL (150-400); Red Blood Cell Count 4.63 X10^6/uL (4.0-5.2); Red Cell Distribution Width 13.8 % (11.6-14.8); White Blood Cell Count 6.4 X10^3/uL (4.5-11.0)
[2024-03-27 10:34] LABS: Alanine Aminotransferase 17 IU/L (<35); Albumin 4.8 g/dL (3.5-5.0); Albumin Globulin Ratio 1.5 (1.0-2.8); Alkaline Phosphatase 57 U/L (38-126); Aspartate Aminotransferase 24 IU/L (14-36); BUN Creatinine Ratio 32.3 (6-22); Bilirubin Total 0.3 mg/dL (0.2-1.3); Blood Urea Nitrogen 21 mg/dL (7-17); Calcium 9.5 mg/dL (8.4-10.2); Carbon Dioxide 26 mmol/L (22-32); Chloride 106 mmol/L (98-107); Cholesterol 283 mg/dL (140-199); Estimated Glomerular Filt Rate > 60 mL/min (>60); Globulin 3.2 g/dL (1.7-4.1); Glucose 94 mg/dL (70-100); HDL Cholesterol 75 mg/dL (40-60); HEMOLYSIS < 15 (0-50); LDL Cholesterol Calculated 182 mg/dL (<100); Potassium 4.3 mmol/L (3.4-5.1); Sodium 140 mmol/L (137-145); Triglycerides 132 mg/dL (35-150)
[2024-03-27 11:03] LABS: TSH w/ Reflex to FT4 0.93 uIU/mL (0.47-4.68)
== END ==
PROVIDERS: PCP Registered Nurse Diabetes Educator; Referring Provider Registered Nurse Diabetes Educator; Visit Provider Registered Nurse Diabetes Educator
DX: I10 Essential (primary) hypertension (principal); E78.5 Hyperlipidemia, unspecified
CPT/HCPCS: 36415; 80053; 80061; 84443; 85027

== ENCOUNTER → 2024-05-03 | Outpatient (CLI) | payer OTHER, SELFPAY ==
--- NOTE | 2024-05-03 15:52 | DI.MG.S_ITS ---
BILATERAL DIGITAL SCREENING MAMMOGRAM 3D/2D WITH CAD: 05/03/2024 CLINICAL: Routine screening. Comparison is made to exams dated: 11/16/2022 mammogram, 03/19/2020 mammogram, and 12/21/2016 mammogram - [facility]. There are scattered areas of fibroglandular density (category b / 25%-50% glandular tissue). Current study was also evaluated with a Computer Aided Detection (CAD) system. No significant masses, calcifications, or other findings are seen in either breast. There has been no significant interval change. IMPRESSION: NEGATIVE There is no mammographic evidence of malignancy. A 1 year screening mammogram is recommended. Based on the Tyrer Cuzick model (a risk assessment model) the patient's lifetime risk is 8.2% and her 10 year risk is 1.8%. According to the ACR, ACS, and NCCN guidelines, an annual breast MRI exam along with mammogram is recommended if the patient's lifetime risk is 20% or greater. This exam was interpreted at Station ID: [id number]. NOTE: For mammograms, a report in lay terms will be sent to the patient. Approximately 15% of breast malignancies will not be visualized mammographically. In the management of a palpable breast mass, a negative mammogram must not discourage biopsy of a clinically suspicious lesion. Electronically Signed By: Jermaine noble/chato:05/04/2024 07:42:06 letter sent: Normal Exam ACR BI-RADS Category 1: Negative
== END ==
PROVIDERS: PCP Registered Nurse Diabetes Educator; Referring Provider Registered Nurse Diabetes Educator; Visit Provider Registered Nurse Diabetes Educator
DX: Z12.31 Encounter for screening mammogram for malignant neoplasm of breast (principal)
CPT/HCPCS: 77063; 77067